=== PATIENT | female | born 1940 | race Caucasian/White ===

== ENCOUNTER 2018-01-27 16:01 | Emergency (ER) | payer MEDICARE, OTHER, SELFPAY ==
[2018-01-27 16:02] VITALS: BP 143/100; PULSE 78; RESP 16; TEMP 36.1; O2SAT 97; BMI 33.6
[2018-01-27] MEDS: fentaNYL 100 MCG/2 ML Ampul 50 MCG IM (16:29)
--- NOTE | 2018-01-27 16:30 | RAD_ITS ---
STUDY: X-RAY - RIGHT SHOULDER REASON FOR EXAM: Female, 77 years old. FALL, RIGHT SHOULDER PAIN TECHNIQUE: 4 view(s) of the shoulder. COMPARISON: None. FINDINGS: Normal glenohumeral articulation. There is widening of the AC joint, with displacement of the clavicle, consistent with a Type III acromioclavicular joint separation. Normal acromion. Normal humeral head and visualized proximal humerus. The soft tissue structures are unremarkable. Normal visualized pulmonary apex. RAD/Shoulder min 2 Views IMPRESSION: AC joint separation. No fracture. Electronically Signed: Darrin Elizalde MD at 16:50 EDT , Service support ,
--- NOTE | 2018-01-27 17:30 | ED.DCSUM_ITS ---
- ER Visit Summary Date of Service: 01/27/18 Chief Complaint: Right shoulder pain History of Present Illness: The patient is a [address] Perkins. She reports that today she slipped on the carpet going down the steps and hit her right shoulder on the wall. She reports that she was able to catch herself and denies any other injuries. No blow to the head or loss of consciousness. No neck, back, wrist, or hip pain. Patient reports pain is 8 out of 10 with movement and 7 out of 10 at rest. She denies any paresthesias distally. Physical Examination: Vitals: Stable. Afebrile. Neck: No vertebral tenderness. Full ROM without difficulty. Cleared by NEXUS criteria. Back: No vertebral tenderness. General: A&O x 3. NAD. Cardiovascular exam: Regular rate and rhythm, no murmur, rub or gallop. Respiratory exam: Chest nontender. No crepitus. Clear to auscultation bilaterally. No wheezes or stridor. Abdominal exam: Soft, nontender, nondistended, normal bowel sounds. No pain in RUQ or LUQ specifically. No peritoneal signs. Extremity: Moderate tenderness palpation over the distal clavicle/AC joint, mild tenderness palpation is diffuse over the deltoid. She is neurovascular intact distal this. Test Results: Right shoulder x-ray shows an AC joint separation. Emergency Department Course and Treatment: Patient was treated with fentanyl IM and placed in a sling. Treatment Plan: Patient refused any further pain medications at home. She will be discharged instructions to follow-up Dr. Roach in 1 week for another exam. Return to the emergency department for any worsening symptoms. Disposition: To home in improved and stable condition. Impression: 1. Right AC joint separation. This note was generated with [employer] dictation software. It may contain incorrect words, spelling, and punctuation that were not noted in review of the chart prior to signing ED Disposition - Plan for ED Patient: Disposition: Home or Assisted Living Chief Complaint: Upper Extremity Injury Instructions: ED Sprain AC Joint Referrals: Avelino Roach DO [STAFF PHYSICIAN] - 1 Week
[2018-01-27 18:00] VITALS: PULSE 68; RESP 18; O2SAT 98
== END 2018-01-27 18:00 | disposition home or self-care (01) ==
LOC: ED 17:20
PROVIDERS: Emergency Provider Emergency Medicine; Family Provider Family Medicine; PCP Family Medicine
DX: S43.101A Unspecified dislocation of right acromioclavicular joint, initial encounter (principal); W01.0XXA Fall on same level from slipping, tripping and stumbling without subsequent striking against object, initial encounter; Y93.9 Activity, unspecified; Y92.9 Unspecified place or not applicable; I10 Essential (primary) hypertension; E03.9 Hypothyroidism, unspecified; Z79.899 Other long term (current) drug therapy
CPT/HCPCS: 73030; 96372; 99283

== ENCOUNTER → 2018-02-01 13:46 | Outpatient (CLI) | payer MEDICARE, OTHER, SELFPAY ==
--- NOTE | 2018-02-01 13:49 | RAD_ITS ---
STUDY: X-RAY - RIGHT SHOULDER REASON FOR EXAM: Female, 77 years old. Recent fall. Pain. TECHNIQUE: A single axillary view(s) of the shoulder. COMPARISON: January 24, 2018 FINDINGS: Single axillary view of the glenohumeral joint shows mild glenohumeral joint arthrosis with generalized osteopenia. RAD/Shoulder One View IMPRESSION: Osteopenia with mild arthrosis. Electronically Signed: Isaiah Camacho MD at 17:56 EDT , Service support ,
== END ==
PROVIDERS: Family Provider Family Medicine; PCP Family Medicine; Visit Provider Orthopaedic Surgery
DX: M25.511 Pain in right shoulder (principal)
CPT/HCPCS: 73020

== ENCOUNTER 2018-03-06 13:00 | Outpatient (RCR) | payer MEDICARE, OTHER, SELFPAY ==
--- NOTE | 2018-02-09 13:10 | HP.PTEVAL_ITS ---
Patient's Visit Information MATTHEW AGUILAR is a 77 year old F referred to Physical Therapy by DO YOON Love with a diagnosis of R shoulder contusion, AC joint sprain. Date of Evaluation: 02/08/18 Physical Therapist: Sam Burt - Visit Plan Frequency: 2x /Week Duration: 4-6 Weeks Plan: Start with pulleys, progressing to AAROM then AROM as tolerated. Add in shoulder isometrics once able progress without symptoms. May use modalities as tolerated. - Subjective Subjective: Pt. is here today for her initial evaluaion with diagnosis of R shoulder contusion and R AC sprain after having fall. Pt. reports ~4 weeks ago falling down the last 4 steps in her house and landing against her wall with her shoulder. Pt. reports initially not thinking much of it, but then was having increased difficulty lifting her arm. Pt. reports having an xray- showing no fx, but having osteopenia and arthritis. Pt. has a Hx of bilateral shoulder RTC repair x2. 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 Decreased symptoms: rest , heat. Pt. reports increased symptoms with lying her side at well. Pt. denies N /T in either UE. Pt. reports that her arm is weak as well. Pt. does not drive. Pt. is hopeful to reduce her pain and improve her ROM in order to get back to all activities with issues. - Pain R shoulder Pain Intensity (Out of 10): 5 Pain Intensity Range: 3, 7 - Objective POSTURE: Pt. has normal shuolder heights. Pt. has rounded shoulders bilaterally. Pt. does keep her arm in guarded positioning in all positions. PALPATION: Pt. has increased tenderness throughout R shoulder including: subacrominal space, AC joint, clavicle, UT, throughout scapular muscules. No pain in neck. NEUROLOGICAL: Pt. has normal sensation to light and sharp touch throughout bilateral UEs. Pt. has 2+ biceps and triceps DTR bilaterally. Pt. is able to shrug her shoulders and scapular retractions without issues or weakness. ROM: R shoulder AROM- flexion 98deg, abd 76deg, functional ER C2 abherrant motion, L5 increase in symptoms abherrant motion. Pt. has increased pain with all AROM testing. PROM- flexion 168deg mild increase NW, abd 155deg increase NW, ER at side 45deg NE, IR at 30deg abd 30deg mild increase NW. L shoulder- AROM- full without increase in symptoms. MMT: L shoulder- flexion 4+/ 5, abd 4+/5, ext 4+/, ER 4/5, IR 4+/5. R shoulder- flexion 4-/5 increase NW, abd 4-/5 increase NW, ext 4/5 increase NW, ER 4/5 NE, IR 4+/5 NE. - Special Tests R Shoulder Drop Sign - IS Test: Negative R Shoulder Empty Can - SS: Positive R Shoulder Belly Press - SupScap: Positive R Shoulder Neer - Impingement: Positive R Shoulder Speeds Test - Labrum/Biceps: Positive R Shoulder Sulcus Sign - Inferior Laxity: Negative R Shoulder O'Briens - SLAP/A-C: Negative R Shoulder Shrug Sign - OA/Adhesive Capsulitis: Negative - Goals Goal 1:: Pt. to be I with all HEP. Goal Time Frame: 4-6 Weeks Goal 2:: Pt. to have increased AROM of R shoulder to full without increase in symptoms. Goal Time Frame: 4-6 Weeks Goal 3:: Pt. to have increased RUE strength by 1/2 grade of all effected musculature allowing increased ability to complete all functional mobility. Goal Time Frame: 4-6 Weeks Goal 4:: Pt. to sleep throughout the night without increase in symptoms. Goal Time Frame: 4-6 Weeks Goal 5:: Pt. to complete all ADLs without increase in symptoms. Goal Time Frame: 4-6 Weeks - Rehabilitation Potential Physical Therapy Diagnosis: Pt. has signs and symptoms consistent with R shoulder contusion, AC joint sprain. Pt. had increased pain this date after moving funny prior to PT. Pt. had positive signs for a lot of testing and has limited AROM, but AAROM/PROM were basically painfree. Testing for RTC ws difficult due to amount of symptoms this date. Pt. would benefit from PT to increase R shoulder AROM, decrease symptoms, and progress strength in order to get back to all ADLs and household work without limitations. Rehabilitation Potential: Good - Anticipated Interventions Patient/Client Instruction: Educate patient on: Condition, Plan of Care, Risk Factors, Benefits of Fitness Program For the Purpose of:: To improve health and function, To foster healthy habits, To improve decision making, To facilitate caregiver knowledge, To improve self management, To prevent re-injury, To improve ability to perform tasks related to life management, To improve tolerance to ADL's Therapeutic Exercise to Include: Strength training, Power training, Body mechanics, Postural training, Flexibilty training, Passive ROM, Active ROM, Scapular Strength/Stabilization For the Purpose of:: To decrease pain, To decrease swelling/inflammation, To increase ROM, To improve nutrient delivery to tissue, To increase oxygenation perfusion, To improve muscle performance and motor function, To improve ability to perform ADL's, To improve performance and independence with ADL's, To decrease soft tissue restriction, To increase flexibility/ROM Manual Therapy Techniques to Include: Mobilization, Passive ROM, Soft tissue mobilization For the Purpose of:: To decrease pain, To increase ROM, To improve nutrient delivery to tissue, To increase oxygenation perfusion, To improve muscle performance and motor function IF ES: Yes Cryotherapy (ice pack, ice massage): Yes Thermo therapy (hot pack): Yes Ultrasound (thermal/non thermal): Yes For the Purpose of:: To decrease pain, To decrease swelling/inflammation, To increase ROM Thank you for the opportunity to evaluate your patient. For Medicare and Medicare HMO plans, please review the plan of care and approve it. It will need to be FAXED BACK to us at [phone] for Medicare purposes. Please let me know if there are questions or concerns regarding this plan of care. Physician Signature: Date:
--- NOTE | 2018-07-26 11:23 | HP.PT.NRP ---
HP - Discharge Summary (1) - Patient Information MATTHEW AGUILAR was seen in my office for initial evaluation on 02/08/18. The following Plan of Care was established for this patient: Initial Frequency: 2x /Week Initial Duration: 4-6 Weeks - Anticipated Interventions Patient/Client Instruction: Educate patient on: Condition, Plan of Care, Risk Factors, Benefits of Fitness Program For the Purpose of:: To improve health and function, To foster healthy habits, To improve decision making, To facilitate caregiver knowledge, To improve self management, To prevent re-injury, To improve ability to perform tasks related to life management, To improve tolerance to ADL's Therapeutic Exercise to Include: Strength training, Power training, Body mechanics, Postural training, Flexibilty training, Passive ROM, Active ROM, Scapular Strength/Stabilization For the Purpose of:: To decrease pain, To decrease swelling/inflammation, To increase ROM, To improve nutrient delivery to tissue, To increase oxygenation perfusion, To improve muscle performance and motor function, To improve ability to perform ADL's, To improve performance and independence with ADL's, To decrease soft tissue restriction, To increase flexibility/ROM Manual Therapy Techniques to Include: Mobilization, Passive ROM, Soft tissue mobilization For the Purpose of:: To decrease pain, To increase ROM, To improve nutrient delivery to tissue, To increase oxygenation perfusion, To improve muscle performance and motor function IF ES: Yes Cryotherapy (ice pack, ice massage): Yes Thermo therapy (hot pack): Yes Ultrasound (thermal/non thermal): Yes For the Purpose of:: To decrease pain, To decrease swelling/inflammation, To increase ROM This patient was last seen in our office 03/06/18. Pertinent comments regarding their Physical therapy will appear below: Pt. was treated for her R shoulder/AC sprain. Pt. progressed very well with ROM and stretching, progressing to strengthening. At our last visit, pt. was having minimal pain and was to trial HEP on own. Pt. has not been seen in ~4 months and will be DC from PT at this point in time. At this point I will be discontinuing this patient from physical therapy. I would be happy to see this patient again in the future if found appropriate by the physician. Thank you! Sam Burt
== END 2018-03-06 19:00 | disposition home or self-care (01) ==
LOC: PT 13:00
PROVIDERS: Family Provider Family Medicine; PCP Family Medicine; Visit Provider Orthopaedic Surgery
DX: S40.011D Contusion of right shoulder, subsequent encounter (principal); S43.51XD Sprain of right acromioclavicular joint, subsequent encounter
CPT/HCPCS: 97014; 97110; 97161; 97530; G0283

== ENCOUNTER → 2018-03-27 09:46 | Outpatient (CLI) | payer MEDICARE, OTHER, SELFPAY ==
--- NOTE | 2018-03-27 09:50 | RAD_ITS ---
STUDY: X-RAY - RIGHT ELBOW REASON FOR EXAM: Female, 77 years old. Pain. No known injury. TECHNIQUE: 3 view(s) of the elbow. COMPARISON: None. FINDINGS: Normal visualized humerus, radius and ulna. Normal radiocapitellar and ulnotrochlear articulations. The soft tissue structures are unremarkable. RAD/Elbow min 3 Views IMPRESSION: Normal x-ray examination of the elbow. Electronically Signed: Hiram Hicks MD at 13:12 EDT Tel [phone], Service support ,
== END ==
PROVIDERS: Family Provider Family Medicine; PCP Family Medicine; Visit Provider Orthopaedic Surgery
DX: M25.521 Pain in right elbow (principal)
CPT/HCPCS: 73080